=== PATIENT | female | born 2005 | race Caucasian/White ===

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

== ENCOUNTER → 2023-01-24 | Outpatient (CLI) | payer OTHER | LOC: M WHC 11:29 | PROVIDERS: ATTEND Advanced Practice Midwife | DX: O99.212 Obesity complicating pregnancy, second trimester (principal); Z3A.27 27 weeks gestation of pregnancy ==

== ENCOUNTER → 2023-02-03 | Outpatient (CLI) | payer OTHER ==
[2023-02-03 16:02] LABS: HEMATOCRIT 34.9 % (36.0-47.0); HEMOGLOBIN 11.4 g/dl (12.0-15.5); MEAN CORPUSCULAR HEMOGLOBIN 30.1 pg (27.0-33.0); MEAN CORPUSCULAR HGB CONC 32.7 g/dl (32.0-36.5); MEAN CORPUSCULAR VOLUME 92.1 fl (80.0-96.0); PLATELET COUNT, AUTOMATED 225 10^3/uL (150-450); RED BLOOD COUNT 3.79 10^6/uL (4.00-5.40); WHITE BLOOD COUNT 10.7 10^3/uL (4.0-10.0)
== END ==
LOC: M PLALAB 11:37
PROVIDERS: ATTEND Advanced Practice Midwife
DX: O99.212 Obesity complicating pregnancy, second trimester (principal)

== ENCOUNTER → 2023-02-10 | Outpatient (CLI) | payer OTHER | LOC: M WHC 12:38 | PROVIDERS: ATTEND Advanced Practice Midwife | DX: O99.213 Obesity complicating pregnancy, third trimester (principal) ==

== ENCOUNTER → 2023-03-25 | Outpatient (REF) | payer OTHER | LOC: M SFHCWAGY 15:20 | PROVIDERS: ATTEND Obstetrics & Gynecology | DX: Z36.89 Encounter for other specified antenatal screening (principal); Z3A.35 35 weeks gestation of pregnancy ==

== ENCOUNTER 2023-04-19 07:24 | Inpatient (IN) | payer OTHER ==
[2023-04-19] VITALS (10 sets, daily range): BP systolic 110–142; BP diastolic 66–85; TEMP 98; O2SAT 97–100
[~2023-04-19] VITALS: Ht 170.2 cm; Wt 102.7 kg
[2023-04-19] MEDS ORDERED: HOME MED LIST COMPLETE! XX SCH (07:50)
[2023-04-19] MEDS ORDERED: LR 1,000 ML IV SCH ×2 (07:50→11:05)
[2023-04-19] MEDS ORDERED: BICITRA 30ML SOLN UDC PO ONE (07:50)
[2023-04-19] MEDS ORDERED: LACTATED RINGER'S 1000 ML IV STA (07:52)
[2023-04-19] MEDS ORDERED: ceFAZolin SOD 2 GM in IV 1 EA IV ONE (07:55)
[2023-04-19] MEDS ORDERED: MORPHINE PRES-FREE INJ 10 MG/10 ML VIAL As Ordered ONE (08:13)
[2023-04-19] MEDS ORDERED: ePHEDrine SULFATE 25 MG/5 ML(5MG/ML) SYRINGE As Ordered ONE (08:14)
[2023-04-19] MEDS ORDERED: PHENYLephrine 500MCG 5ML (100MCG/ML) SYRINGE As Ordered ONE (08:14)
[2023-04-19] MEDS ORDERED: OXYTOCIN 30UNITS IN 0.9% NaCl 500ML IV BAG As Ordered ONE ×2 (08:15→11:14)
[2023-04-19 08:34] LABS: HEMATOCRIT 35.1 % (36.0-47.0); HEMOGLOBIN 11.8 g/dl (12.0-15.5); MEAN CORPUSCULAR HEMOGLOBIN 29.3 pg (27.0-33.0); MEAN CORPUSCULAR HGB CONC 33.6 g/dl (32.0-36.5); MEAN CORPUSCULAR VOLUME 87.1 fl (80.0-96.0); PLATELET COUNT, AUTOMATED 206 10^3/uL (150-450); RED BLOOD COUNT 4.03 10^6/uL (4.00-5.40); WHITE BLOOD COUNT 9.7 10^3/uL (4.0-10.0)
[2023-04-19] MEDS: LR 1,000 ML IV SCH ×5 (09:04→23:55)
[2023-04-19] MEDS ORDERED: KETOROLAC 60MG 2ML VIAL As Ordered ONE (10:44)
[2023-04-19] MEDS ORDERED: ONDANSETRON 4MG 2ML VIAL As Ordered ONE (10:44)
[2023-04-19] MEDS ORDERED: NALOXONE INJ 0.4MG/1ML VIAL IV PRN ×2 (11:05)
[2023-04-19] MEDS ORDERED: NALBUPHINE HCL 1MG/0.1ML (100MG/10ML) MDV IV PRN (11:05)
[2023-04-19] MEDS ORDERED: diphenhydrAMINE 50MG/ML VIAL IV PRN (11:05)
[2023-04-19] MEDS ORDERED: METOCLOPRAMIDE INJ 10MG/2ML VIAL IV PRN (11:05)
[2023-04-19] MEDS ORDERED: **NOTE PATIENT COMMENT** MISC XX SCH (11:05)
[2023-04-19] MEDS: SLF 3 ML SYR IV SCH ×2 (11:05→19:05)
[2023-04-19] MEDS ORDERED: MORPHINE 2 MG/ML 1ML VIAL IV PRN (11:05)
[2023-04-19] MEDS ORDERED: ONDANSETRON 4MG 2ML VIAL IV PRN ×2 (11:05→11:20)
[2023-04-19] MEDS ORDERED: MEPERIDINE 25 MG/ML 1ML VIAL IV PRN (11:05)
[2023-04-19] MEDS ORDERED: ACETAMINOPHEN 500 MG TAB PO PRN (11:20)
[2023-04-19] MEDS ORDERED: PERCOCET 5MG/325MG TAB PO PRN ×2 (11:20)
[2023-04-19] MEDS ORDERED: RHOGAM 300MCG (1500IU) INJ IM SCH (11:20)
[2023-04-19] MEDS ORDERED: SIMETHICONE 80MG CHEW TAB PO PRN (11:20)
[2023-04-19] MEDS ORDERED: OXYTOCIN DRIP 30 UNITS in IV 1 EA IV SCH (11:20)
[2023-04-19] MEDS ORDERED: MORPHINE 4 MG/ML 1ML VIAL IV PRN (11:20)
[2023-04-19] MEDS ORDERED: METHYLERGONOVINE MALEATE 0.2 MG TAB PO PRN (11:20)
[2023-04-19] MEDS ORDERED: ANUSOL HC CREAM 30GM TOP PRN (11:20)
[2023-04-19] MEDS ORDERED: PERCOCET PO (11:28)
[2023-04-19] MEDS ORDERED: COLA100C5 PO (11:28)
[2023-04-19] MEDS ORDERED: IBUP80TA PO (11:28)
[2023-04-19] MEDS: KETOROLAC 30 MG/ML 1ML VIAL IV SCH ×2 (17:19→23:20)
[2023-04-19] MEDS: DOCUSATE SODIUM 100MG CAPSULE PO SCH (21:08)
[2023-04-20 02:00] VITALS: BP 106/57; O2SAT 97
[2023-04-20] MEDS: SLF 3 ML SYR IV SCH (03:03)
[2023-04-20] MEDS: KETOROLAC 30 MG/ML 1ML VIAL IV SCH (05:17)
[2023-04-20 06:00] VITALS: BP 113/62; O2SAT 98
[2023-04-20 06:25] LABS: HEMATOCRIT 27.7 % (36.0-47.0); MEAN CORPUSCULAR HGB CONC 33.2 g/dl (32.0-36.5); MEAN CORPUSCULAR VOLUME 90.2 fl (80.0-96.0); PLATELET COUNT, AUTOMATED 166 10^3/uL (150-450); RED BLOOD COUNT 3.07 10^6/uL (4.00-5.40); WHITE BLOOD COUNT 10.6 10^3/uL (4.0-10.0)
[2023-04-20 06:29] LABS: HEMOGLOBIN 9.2 g/dl (12.0-15.5)
[2023-04-20] MEDS: PRENATAL VITAMINS CHEWABLE TABLET PO SCH (09:00)
[2023-04-20] MEDS: DOCUSATE SODIUM 100MG CAPSULE PO SCH ×2 (09:41→20:31)
[2023-04-20 10:00] VITALS: BP 128/75; O2SAT 99
[2023-04-20] MEDS: IBUPROFEN 800 MG TAB PO SCH ×2 (13:00→20:31)
[2023-04-20 14:00] VITALS: BP 116/64; O2SAT 100
[2023-04-20 18:00] VITALS: BP 135/76; O2SAT 99
[2023-04-21 02:00] VITALS: BP 128/78; O2SAT 99
[2023-04-21] MEDS: IBUPROFEN 800 MG TAB PO SCH (04:29)
[2023-04-21 06:00] VITALS: BP 129/65; O2SAT 99
[2023-04-21] MEDS ORDERED: MEASLES,MUMPS,RUBELLA VACCINE INJ (MMR-II) SC.IMMUN ONE (09:00)
[2023-04-21] MEDS: DOCUSATE SODIUM 100MG CAPSULE PO SCH (09:59)
[2023-04-21] MEDS: PRENATAL VITAMINS CHEWABLE TABLET PO SCH (09:59)
[2023-04-21 10:00] VITALS: BP 134/84; O2SAT 98
== END 2023-04-21 14:40 | disposition home or self-care (01) | DRG 540 ==
LOC: M LDI 07:24 → M OBS 12:22
PROVIDERS: ADMIT Obstetrics & Gynecology; ATTEND Obstetrics & Gynecology
PROC: 10D00Z1 Extraction of Products of Conception, Low, Open Approach (ICD-10-PCS; principal; 2023-04-19 09:30)
DX: O32.1XX0 Maternal care for breech presentation, not applicable or unspecified (principal); Z3A.39 39 weeks gestation of pregnancy; Z37.0 Single live birth